=== PATIENT | male | born 1955 | race Two or more races ===

== ENCOUNTER 2023-10-05 11:01 | Emergency (ER) | payer OTHER ==
[~2023-10-05] VITALS: Ht 172.7 cm; Wt 77.1 kg
[2023-10-05] MEDS ORDERED: SIMVASTATIN80 MG (12:11)
[2023-10-05] MEDS ORDERED: LEVEMIR100 UNIT/1 (12:12)
[2023-10-05] MEDS ORDERED: NOVOLIN 70100 UNIT/2 (12:12)
[2023-10-05] MEDS ORDERED: DICYCLOMIN10 MG/5 M1 (12:12)
[2023-10-05] MEDS ORDERED: ACTOS30 MG (12:12)
[2023-10-05] MEDS ORDERED: IRBESARTAN150 MG PO (12:13)
[2023-10-05 14:02] LABS: HEMATOCRIT 44.6 % (39.0-48.0); HEMOGLOBIN 15.2 g/dL (13-16.00); MEAN CELL VOLUME 87.9 fL (80.0-100.00); MEAN CORPUSCULAR HEMOGLOBIN 29.9 pg (27.00-32.0); PLATELET COUNT 237 K/uL (150-450); RED BLOOD COUNT 5.07 M/uL (4.00-6.00); RED CELL DISTRIBUTION WIDTH 14.3 % (11.5-14.5)
[2023-10-05 14:25] LABS: INR 0.96; PROTHROMBIN TIME 10.1 SECONDS (9.0-11.5)
[2023-10-05 14:33] LABS: ALBUMIN 3.5 gm/dL (3.4-5.0); BILIRUBIN TOTAL 0.38 mg/dL (0.3-1.2); CALCIUM 8.9 mg/dL (8.5-10.1); CREATININE SERUM 0.81 mg/dL (0.70-1.30); GFR 94.21; GLOBULINA 3.5 G/DL (2.4-3.5); POTASSIUM 4.7 mEq/L (3.5-5.1)
== END 2023-10-05 16:30 | disposition designated cancer center or children's hospital (05) ==
LOC: ER 11:02
PROVIDERS: General Practice
DX: H53.8 Other visual disturbances (principal); Z20.822 Contact with and (suspected) exposure to COVID-19